=== PATIENT | female | born 2000 | race Caucasian/White ===

== ENCOUNTER 2023-10-18 06:03 | Day surgery (SDC) | payer BC, SELFPAY ==
[2023-09-28 08:43] LABS: Hematocrit 36.4 % (37.0-47.0); Hemoglobin 13.2 g/dL (12.0-16.0); Mean Corp Hgb Conc. 36.3 g/dL (33.0-37.0); Mean Corpuscular Hgb 32.7 pg (27.0-31.0); Mean Corpuscular Volume 90.1 fL (81.0-99.0); Mean Platelet Volume 10.6 fL (7.4-10.4); Platelet Count 229 10^3/uL (130-400); Red Blood Cell Count 4.04 10^6/uL (4.20-5.40); Red Cell Dist. Width 11.8 % (11.5-14.5); White Blood Cell Count 6.9 10^3/uL (4.8-10.8)
[2023-09-28 08:49] LABS: HCG, Urine Qualitative Screen Negative
[2023-09-28 10:19] VITALS: BMI 21.3
[2023-10-18] VITALS (9 sets, daily range): BP systolic 102–115; BP diastolic 61–97; BMI 21.3
[2023-10-18] MEDS: NORMOSOL-R 1000 IV (08:16)
[2023-10-18] MEDS: TYLENOL 1000 MG PO (08:16)
== END 2023-10-18 11:56 | disposition home or self-care (01) ==
LOC: SDS 06:03
PROVIDERS: ATTENDING PHYSICIAN Otolaryngology; FAMILY PHYSICIAN Physician Assistant Medical
DX: J03.91 Acute recurrent tonsillitis, unspecified (principal)
CPT/HCPCS: 42826; 88304; 36415; 81025; 85027

== ENCOUNTER 2024-05-30 16:48 | Emergency (ER) | payer BC, SELFPAY ==
[2024-05-30 16:50] VITALS: BP 119/63
[2024-05-30 17:00] LABS: % Basophils 0.7 % (0-2); % Eosinophils 1.8 % (0-6); % Immature Granulocytes 0.2 % (0-0.5); % Lymphocytes 42.8 % (20.5-51.1); % Monocytes 8.7 % (1.7-9.3); % Neutrophils 45.8 % (42.2-75.2); Absolute Eosinophils 0.1 10^3/uL (0-0.7); Absolute Lymphocytes 2.6 10^3/uL (1.2-3.4); Absolute Monocytes 0.5 10^3/uL (0.1-0.6); Absolute Neutrophils 2.8 10^3/uL (1.4-6.5); Hematocrit 35.8 % (37.0-47.0); Hemoglobin 12.8 g/dL (12.0-16.0); Mean Corp Hgb Conc. 35.8 g/dL (33.0-37.0); Mean Corpuscular Hgb 32.5 pg (27.0-31.0); Mean Corpuscular Volume 90.9 fL (81.0-99.0); Mean Platelet Volume 10.9 fL (7.4-10.4); Nucleated Red Blood Cells % 0 %; Platelet Count 170 10^3/uL (130-400); Red Blood Cell Count 3.94 10^6/uL (4.20-5.40); Red Cell Dist. Width 11.3 % (11.5-14.5)
[2024-05-30 17:21] LABS: HCG, Serum Qualitative Screen Negative
[2024-05-30 17:25] LABS: ALT (SGPT) 30 U/L (0-35); AST (SGOT) 23 U/L (14-36); Albumin 4.9 g/dl (3.5-5.0); Alkaline Phosphatase 56 U/L (38-126); Blood Urea Nitrogen 7 mg/dl (7-17); Calcium 9.6 mg/dl (8.4-10.2); Carbon Dioxide 27 mmol/L (22-30); Chloride 104 mmol/L (98-107); Glucose 87 mg/dl (70-99); Potassium 3.8 mmol/L (3.5-5.1); Sodium 140 mmol/L (135-145); Total Bilirubin 0.6 mg/dl (0.2-1.3); Total Protein 7.2 g/dl (6.3-8.2); eGFR > 60.00
--- NOTE | 2024-05-30 18:58 | ED.GENMED ---
History of Present Illness
General
Chief Complaint: Abdominal Pain
Source: patient
Exam Limitations: none
Time Seen by Provider: 05/30/24 18:28
History of Present Illness
History of Present Illness:
24yoF with a history of asthma and gluten intolerance presenting with her mother for evaluation of abdominal pain. Patient reports pain in her right lower quadrant for the past week. Pain was initially mild but became worse today. Pain is worse
with movement and she was having pain while driving due to the seatbelt pressing on the area. She has tried probiotics without any relief. Last bowel movement was 3 days ago but this is not unusual for her. She is nauseous but denies any
vomiting. She is worried about an ovarian cyst as she has a family history of this. She is otherwise asymptomatic and denies any fevers, diarrhea, dysuria, vaginal bleeding, vaginal discharge. Last menstrual period about 3 weeks ago. No previous
abdominal surgeries.
Past History
Past History
ED Past Medical History: Asthma, Psychiatric (Anxiety) and Other (Chronic constipation, UTI, )
ED Past Surgical History: None
Social History
Tobacco: Non-smoker
Alcohol: Occasional
Personal: (in the process of getting )
Living: with family
Employment: Employed
Family History
Family History: Other
Phy Exam
General Physical Exam
General Presentation: well appearing and no apparent distress
General age: appears stated age
General Skin: warm and dry
General Habitus: normal
ENT Exam
ENT Exam: normocephalic
Cardiovascular Exam
Cardiovascular Exam: regular rate/rhythm
Pulmonary Exam
Pulmonary Exam: lungs clear, no respiratory distress, no rales, no crackles, no rhonchi and no wheezing
Gastrointestinal Exam
Gastrointestinal Exam: soft, non distended, tender and other (+Tenderness in the RLQ, RUQ, epigastric, and suprapubic regions. Abdomen soft, non-distended. No rebound or guarding.)
Neurological Exam
Neurological Exam: alert
Shaan Coma Scale
Eye Opening: Spontaneous
Verbal Response: Oriented
Motor Response: Obeys Commands
GCS Total Score: 15
Skin Exam
Skin Exam: normal color and warm/dry
Psychiatric Exam
Psychiatric Exam: normal mood/affect
Course
Orders/Labs/Results
Orders:
Orders
05/30/24 16:51
Test Result ONCE
05/30/24 16:55
Complete Blood Count/With Diff Urgent
Comprehensive Metabolic Panel Urgent
HCG, Serum Qualitative Screen Urgent
05/30/24 18:54
CT Abd/pel W Iv And Oral Contr Urgent
Comment:
Reason For Exam: RLQ pain
0.9% Sodium Chloride 1000 ml [Nss] 1,000 ml IV BOLUS
Iohexol [Omnipaque] See Protocol PO NOW STA
Ketorolac [Toradol] 15 mg IV NOW STA
05/30/24 21:47
US Pelvis Only (non-obstetric) Urgent
Reason For Exam: RLQ pain, possible cyst on CT
05/30/24 21:57
Urinalysis Reflex To Culture Urgent
Date Specimen was Collected: 05/30/24
Time Specimen was Collected: 21:55
Abnormal Lab Results
05/30/24
16:55
RBC 3.94 L 10^6/uL
(4.20-5.40)
Hct 35.8 L %
(37.0-47.0)
MCH 32.5 H pg
(27.0-31.0)
RDW 11.3 L %
(11.5-14.5)
MPV 10.9 H fL
(7.4-10.4)
05/30/24 16:55
05/30/24 16:55
Vital Signs
Initial and Last Documented VS:
Initial Vital Signs
Temp Pulse Resp BP Pulse Ox
98.5 F 67 16 119/63 100
05/30/24 16:50 05/30/24 16:50 05/30/24 16:50 05/30/24 16:50 05/30/24 16:50
Last Documented Vital Signs
Temp Pulse Resp BP Pulse Ox
98.2 F 78 17 108/72 99
05/30/24 23:28 05/30/24 23:28 05/30/24 23:28 05/30/24 20:00 05/30/24 23:28
MDM/Problems Addressed
Differential Diagnosis Includes:
24yoF here with RLQ pain x 1 week that worsened today. Worse with movement. Also having constipation but this is typical for her. VSS. She is well appearing in no distress. No signs of peritonitis on abdominal exam. Differential diagnosis includes
but is not limited to: appendicitis, mesenteric adenitis, colitis, ovarian cyst, nonspecific abdominal pain
Initial ED plan: Labs obtained in triage are unremarkable including normal white count. Will check UA and CT abdomen with IV/PO contrast. IV Toradol and fluid bolus.
*Critical Care Note
Total Time (30-74mins, 75-104mins- exclusive of procedures): Not Applicable
Update Note
Update Note:
UA bland without signs of infection. No evidence of appendicitis on CT. There is 'Small volume free fluid extending from the right adnexa into the dependent true pelvis which may be the sequela of recently ruptured right adnexal/ovarian cyst.' A
follow-up ultrasound was ordered which shows similar findings. Bilateral ovarian flow confirmed. She is comfortable on reassessment. Supportive care discussed including heating pad and NSAIDs. Advised f/u with OBGYN and ED return precautions
reviewed. She expressed understanding and was discharged in stable condition.
ED Attending Note
-
Portions of this chart may have been created with voice recognition software.� Occasional wrong word or��sound alike� substitutions may have occurred due to the inherent limitations of voice recognition software.
Discharge Plan
Departure
Patient Disposition: Home (Routine Discharge)
Date of Disposition: 05/30/24
Time of Disposition: 23:13
Patient with high blood pressure during this ER visit?: No
Discharge Problem:
Acute right lower quadrant pain, Rupture of cyst of right ovary
Instructions: Ovarian Cyst (DC)
Prescriptions:
No Action
cyclobenzaprine 10 MG tablet
10 mg PO TIDPRN PRN (Reason: muscle tightness/spasm) Qty: 15 0RF
lorazepam [Ativan] 0.5 mg tablet
0.5 mg PO BID PRN (Reason: anxiety) Qty: 7 0RF
multivitamin Tablet
1 tab PO DAILY
ascorbic acid (vitamin C) [Vitamin C] 500 mg Tablet
500 mg PO DAILY
norethindrone-e.estradiol-iron [Junel Fe 24] 1 mg-20 mcg (24)/75 mg (4) Tablet
1 tab PO HS
Referrals:
Vidhya Gutiérrez MD [Active] -
Lisseth Soler PA-C [Family Provider] -
Activity Restrictions/Additional Instructions:
Apply heat to affected area. Take ibuprofen 400 to 600 mg every 6 hours as needed for pain.
Please follow-up with gynecology. Return to the ER with any worsening symptoms including severe pain or fevers.
Interventions
Interventions:
*Risk Screen - Suicide Last Done: 05/30/24 16:52
*General Assessment Last Done: 05/30/24 19:05
*Neglect/Abuse Screening Last Done: 05/30/24 16:52
*ED- Fall Risk Assessment Last Done: 05/30/24 19:05
*ED COVID-19 Vaccine History Last Done: 05/30/24 19:05
*Nursing Disposition Last Done: 05/30/24 23:28
PZ-Ekxhse-Xkygrtkftx Assessment Last Done: 05/30/24 19:05
Discharge Date and Time
Discharge Date/Time: 05/30/24 23:30
Print Language: POLISH
[2024-05-30 19:02] VITALS: BMI 22.6
[2024-05-30] MEDS: NSS 1000 IV (19:04)
[2024-05-30] MEDS: TORADOL 15 MG IV (19:04)
[2024-05-30] MEDS: OMNIPAQUE 50 ML PO (19:04)
[2024-05-30 19:09] VITALS: BP 100/68
[2024-05-30 20:00] VITALS: BP 108/72
[2024-05-30 22:08] LABS: Urine Albumin Negative (Neg - Trace); Urine Bilirubin Negative (Negative); Urine Character Clear (Clear); Urine Glucose Negative (Negative); Urine Ketone Negative (Negative); Urine Leukocyte Negative (Negative); Urine Nitrite Negative (Negative); Urine Occult Blood Negative (Negative); Urine Urobilinogen Negative (Neg - 1+)
[2024-05-30 22:09] LABS: Urine Color Straw
== END 2024-05-30 23:30 | disposition home or self-care (01) ==
LOC: EMR 16:48
PROVIDERS: Physician Assistant; Student in an Organized Health Care Education/Training Program; EMERGENCY PHYSICIAN Emergency Medicine; FAMILY PHYSICIAN Physician Assistant Medical
DX: N83.201 Unspecified ovarian cyst, right side (principal); R10.31 Right lower quadrant pain; J45.909 Unspecified asthma, uncomplicated; K90.41 Non-celiac gluten sensitivity
CPT/HCPCS: 99284; 96374; 96361; 74177; 76856; 80053; 81003; 84703; 85025; 96375; Q9967

== ENCOUNTER 2024-08-05 11:31 | Day surgery (SDC) | payer BC, SELFPAY ==
[2024-08-04 22:33] VITALS: BMI 23.4
[2024-08-04 22:34] VITALS: BP 114/62
[2024-08-04 22:50] LABS: % Basophils 0.4 % (0-2); % Eosinophils 0.7 % (0-6); % Immature Granulocytes 0.3 % (0-0.5); % Lymphocytes 20.3 % (20.5-51.1); % Monocytes 4.8 % (1.7-9.3); % Neutrophils 73.5 % (42.2-75.2); Absolute Basophils 0.1 10^3/uL (0-0.2); Absolute Eosinophils 0.1 10^3/uL (0-0.7); Absolute Lymphocytes 2.3 10^3/uL (1.2-3.4); Absolute Monocytes 0.6 10^3/uL (0.1-0.6); Absolute Neutrophils 8.5 10^3/uL (1.4-6.5); Hematocrit 31.3 % (37.0-47.0); Hemoglobin 11.6 g/dL (12.0-16.0); Mean Corp Hgb Conc. 37.1 g/dL (33.0-37.0); Mean Corpuscular Hgb 33.9 pg (27.0-31.0); Mean Corpuscular Volume 91.5 fL (81.0-99.0); Mean Platelet Volume 10.9 fL (7.4-10.4); Nucleated Red Blood Cells % 0 %; Platelet Count 187 10^3/uL (130-400); Red Blood Cell Count 3.42 10^6/uL (4.20-5.40); Red Cell Dist. Width 11.7 % (11.5-14.5); White Blood Cell Count 11.6 10^3/uL (4.8-10.8)
[2024-08-04 22:57] LABS: HCG, Serum Qualitative Screen Positive
[2024-08-04 23:11] LABS: ALT (SGPT) 10 U/L (0-35); AST (SGOT) 15 U/L (14-36); Albumin 4.3 g/dl (3.5-5.0); Alkaline Phosphatase 45 U/L (38-126); Blood Urea Nitrogen 10 mg/dl (7-17); Calcium 9.4 mg/dl (8.4-10.2); Carbon Dioxide 21 mmol/L (22-30); Chloride 108 mmol/L (98-107); Glucose 91 mg/dl (70-99); Lipase 56 U/L (23-300); Potassium 3.6 mmol/L (3.5-5.1); Sodium 137 mmol/L (135-145); Total Bilirubin 0.7 mg/dl (0.2-1.3); Total Protein 6.8 g/dl (6.3-8.2); eGFR > 60.00
[2024-08-04 23:50] VITALS: BP 96/66
[2024-08-04 23:53] VITALS: BP 96/66
[2024-08-05] VITALS (12 sets, daily range): BP systolic 96–111; BP diastolic 45–74
--- NOTE | 2024-08-05 00:24 | ED.GENMED ---
History of Present Illness
<Elian Hall PA-C - Last Filed: 08/06/24 06:13>
General
Chief Complaint: Abdominal Pain
Time Seen by Provider: 08/04/24 23:28
History of Present Illness
History of Present Illness:
24-year-old female presents to the emergency department for evaluation of lower abdominal pain radiating to her back and rectal area for the past day. Pain is intermittent in nature and associated with vaginal spotting. She does note that the
vaginal spotting has been ongoing for approximately 1 week. No fevers, chills, or sweats. Denies any dysuria or urgency. Uncertain if she may have had hematuria or whether this was vaginal bleeding. Last menstrual cycle was 3 to 4 weeks ago.
She is on oral contraceptives. Denies concern for STD
Past History
<Elian Hall PA-C - Last Filed: 08/06/24 06:13>
Past History
ED Past Medical History: Asthma, Psychiatric (Anxiety) and Other (Chronic constipation, UTI, )
ED Past Surgical History: None
Social History
Tobacco: Non-smoker
Alcohol: Occasional
Personal: (in the process of getting )
Living: with family
Employment: Employed
Family History
Family History: Other
Review of Systems
<Elian Hall PA-C - Last Filed: 08/06/24 06:13>
Review of Systems
Allergies reviewed?: Yes
All Other Systems: ROS reviewed and negative except as documented in HPI and ROS
Phy Exam
<Elian Hall PA-C - Last Filed: 08/06/24 06:13>
Physical Exam
Physical Exam:
GEN: Well appearing, NAD, WDWN
HEENT: Oral mucosa moist, no scleral icterus
Cardiac: Regular rate
Lung: No respiratory distress, no tachypnea
Abd: Soft, mildly tender suprapubic region, no rigidity
MSK: No gross deformity or injuries
Skin: Good color, no pallor or jaundice, no rashes
Neuro: AO x3, moves all extremities freely
Psych: Calm, cooperative
Course
<Elian Hall PA-C - Last Filed: 08/06/24 06:13>
Orders/Labs/Results
Orders:
Orders
08/04/24 22:38
Test Result ONCE
08/04/24 22:40
Beta HCG Quantitative Urgent
Comment: ADD ON
Complete Blood Count/With Diff Urgent
Comprehensive Metabolic Panel Urgent
HCG, Serum Qualitative Screen Urgent
Comment: Notify provider if positive test present
Lipase Urgent
08/04/24 23:43
Add On- LAB Urgent
Tests Added?: Beta hcg quantitative
08/05/24 00:23
0.9% Sodium Chloride 1000 ml [Nss] 1,000 ml IV BOLUS
US W Transvaginal Urgent
Comment:
Reason For Exam: + preg, pelvic pain
08/05/24 02:27
Acetaminophen [Tylenol] 1,000 mg PO NOW STA
08/05/24 02:50
Urinalysis Reflex To Culture Urgent
Date Specimen was Collected: 08/05/24
Time Specimen was Collected: 02:45
Urine Microscopic Reflex Cult Urgent
Urine Culture Urgent
ANYA Source: U
Specimen Description:
Date Specimen was Collected: 08/05/24
Time Specimen was Collected: 02:45
08/05/24 03:19
MRI Abdomen [MR Abdomen Without Contrast] Urgent
Comment:
Reason For Exam: RLQ pain, possible appendicitis, 1st trim
OK for patient to be off Cardiac Monitoring for MRI: Yes
Recent pill cam endoscopy?: No
Pacemaker/Defibrillator?: No
Brain Aneurysm Clips?: No
Have you ever worked with metal? grinding metal? welding?: No
Cochlear(ear) implants?: No
Does Pt have a Temp Sensing Cath?: No
Does the patient have IV access?: Yes
Does the patient have any stents?: No
08/05/24 09:17
Type+Screen Urgent
PTT Urgent
08/05/24 09:35
Fentanyl Citrate/Pf [Sublimaze] 25 mcg IV [id number] PRN
HYDROmorphone [Dilaudid] 0.25 mg IV PACU-Q5MPRN PRN
HYDROmorphone [Dilaudid] 0.5 mg IV PACU-Q5MPRN PRN
Ondansetron Injectable [Zofran] 4 mg IV PACU-ONCEPRN PRN
Prochlorperazine [Compazine] 5 mg IV PACU-ONCEPRN PRN
Notify MD As Directed
Notify physician if: for SDS patients with known or suspected sleep obstructive sleep apnea, monitor in the
PACU.
Notify MD for any apneic/desaturation episodes
O2 Therapy [RESP] Urgent
Titrate/Wean O2 to maintain O2 sat greater than (%): 92
Special Instructions: -Provide supplemental oxygen to achieve O2 sat of 92% or greater.
-After 15 min, may wean O2 and discontinue if patient is able to maintain O2 sat of 92%
or greater during recovery period.
If patient is a discharge home, without oxygen therapy, notify anestheiologist if
unable to maintain O2 SAT of 92% or greater on room air for MD clearance.
08/05/24 09:43
ABO2 Routine
Platypus Platform[employer] Wristband Number:
Associate notified that ABO2 has been ordered: Y
Date: 08/05/24
Time: 09:31
Endodontics Dentist ID: [id number]
08/05/24 09:45
Normosol (Mult Electrolytes) [Normosol-R/Plasmalyte-A] 1,000 ml IV PER PROTOCOL
08/05/24 09:56
Bupivacaine Mpf 0.25% [Sensorcaine-Mpf 0.25% Vial] 30 ml .ROUTE .STK-MED ONE
08/05/24 10:00
Fentanyl Citrate/Pf [Sublimaze] 100 mcg .ROUTE .STK-MED ONE
08/05/24 10:01
Dexamethasone Sod Phosphate [Decadron] 20 mg .ROUTE .STK-MED ONE
Midazolam HCl [Versed] 2 mg .ROUTE .STK-MED ONE
Ondansetron Injectable [Zofran] 4 mg .ROUTE .STK-MED ONE
08/05/24 10:02
Lidocaine HCl/Pf [Xylocaine-Mpf 1% Vial] 50 mg .ROUTE .STK-MED ONE
Propofol [Diprivan] 40 ml .ROUTE .STK-MED
Rocuronium [place] [Rocuronium] 100 mg .ROUTE .STK-MED ONE
Sugammadex Sodium [Bridion] 200 mg .ROUTE .STK-MED ONE
08/05/24 10:29
Metoclopramide [Reglan] 10 mg .ROUTE .STK-MED ONE
08/05/24 10:35
OR Pathology Routine
Pre-Operative Diagnosis: ECTOPIC
Post-Operative Diagnosis: RUPTURED RIGHT ECTOPIC
Operative Procedure: DX LAP;RIGHT SALPINGECTOMY
Surgeon: ADEBAYO
Circulating Nurse: SHAKA
Specimen Type: RIGHT FALLOPIAN TUBE
08/05/24 10:37
Phenylephrine HCl/0.9% NaCl [Jah-Synephrine] 1,000 mcg .ROUTE .STK-MED ONE
08/05/24 11:08
Ketorolac [Toradol] 30 mg .ROUTE .STK-MED ONE
08/05/24 11:47
HYDROmorphone [Dilaudid] 2 mg PO Q4HPRN PRN
08/05/24 12:00
Acetaminophen [Tylenol] 650 mg PO SDS-Q4HPRN PRN
Normosol (Mult Electrolytes) [Normosol-R/Plasmalyte-A] 1,000 ml IV SDS-ONCE
Ondansetron Injectable [Zofran] 4 mg IV SDS-ONCEPRN PRN
Oxycodone [Roxicodone] 5 mg PO SDS-Q4HPRN PRN
Abnormal Lab Results
08/04/24 08/05/24
22:40 02:50
WBC 11.6 H 10^3/uL
(4.8-10.8)
RBC 3.42 L 10^6/uL
(4.20-5.40)
Hgb 11.6 L g/dL
(12.0-16.0)
Hct 31.3 L %
(37.0-47.0)
MCH 33.9 H pg
(27.0-31.0)
MCHC 37.1 H g/dL
(33.0-37.0)
MPV 10.9 H fL
(7.4-10.4)
Absolute Neuts (auto) 8.5 H 10^3/uL
(1.4-6.5)
Lymphocytes % 20.3 L %
(20.5-51.1)
Chloride 108 H mmol/L
(98-107)
Carbon Dioxide 21 L mmol/L
(22-30)
Ur Occult Blood Reflex 4+ A
(Negative)
Leukocyte Esterase Rfl 1+ A
(Negative)
Urine Bacteria (Reflex) Many A
(Negative)
08/04/24 22:40
08/04/24 22:40
Vital Signs
Initial and Last Documented VS:
Initial Vital Signs
Temp Pulse Resp BP Pulse Ox
98.6 F 82 16 114/62 100
08/04/24 22:34 08/04/24 22:34 08/04/24 22:34 08/04/24 22:34 08/04/24 22:34
Last Documented Vital Signs
Temp Pulse Resp BP Pulse Ox
98.2 F 79 16 110/70 100
08/05/24 11:30 08/05/24 12:45 08/05/24 12:45 08/05/24 12:45 08/05/24 12:45
<Florentin Odell MD - Last Filed: 08/05/24 09:30>
Orders/Labs/Results
Orders:
Orders
08/04/24 22:38
Test Result ONCE
08/04/24 22:40
Beta HCG Quantitative Urgent
Comment: ADD ON
Complete Blood Count/With Diff Urgent
Comprehensive Metabolic Panel Urgent
HCG, Serum Qualitative Screen Urgent
Comment: Notify provider if positive test present
Lipase Urgent
08/04/24 23:43
Add On- LAB Urgent
Tests Added?: Beta hcg quantitative
08/05/24 00:23
0.9% Sodium Chloride 1000 ml [Nss] 1,000 ml IV BOLUS
US W Transvaginal Urgent
Comment:
Reason For Exam: + preg, pelvic pain
08/05/24 02:27
Acetaminophen [Tylenol] 1,000 mg PO NOW STA
08/05/24 02:50
Urinalysis Reflex To Culture Urgent
Date Specimen was Collected: 08/05/24
Time Specimen was Collected: 02:45
Urine Microscopic Reflex Cult Urgent
Urine Culture Urgent
ANYA Source: U
Specimen Description:
Date Specimen was Collected: 08/05/24
Time Specimen was Collected: 02:45
08/05/24 03:19
MRI Abdomen [MR Abdomen Without Contrast] Urgent
Comment:
Reason For Exam: RLQ pain, possible appendicitis, 1st trim
OK for patient to be off Cardiac Monitoring for MRI: Yes
Recent pill cam endoscopy?: No
Pacemaker/Defibrillator?: No
Brain Aneurysm Clips?: No
Have you ever worked with metal? grinding metal? welding?: No
Cochlear(ear) implants?: No
Does Pt have a Temp Sensing Cath?: No
Does the patient have IV access?: Yes
Does the patient have any stents?: No
08/05/24 09:17
Type+Screen Urgent
PTT Urgent
08/05/24 09:35
Fentanyl Citrate/Pf [Sublimaze] 25 mcg IV [id number] PRN
HYDROmorphone [Dilaudid] 0.25 mg IV PACU-Q5MPRN PRN
HYDROmorphone [Dilaudid] 0.5 mg IV PACU-Q5MPRN PRN
Ondansetron Injectable [Zofran] 4 mg IV PACU-ONCEPRN PRN
Prochlorperazine [Compazine] 5 mg IV PACU-ONCEPRN PRN
Notify MD As Directed
Notify physician if: for SDS patients with known or suspected sleep obstructive sleep apnea, monitor in the
PACU.
Notify MD for any apneic/desaturation episodes
O2 Therapy [RESP] Urgent
Titrate/Wean O2 to maintain O2 sat greater than (%): 92
Special Instructions: -Provide supplemental oxygen to achieve O2 sat of 92% or greater.
-After 15 min, may wean O2 and discontinue if patient is able to maintain O2 sat of 92%
or greater during recovery period.
If patient is a discharge home, without oxygen therapy, notify anestheiologist if
unable to maintain O2 SAT of 92% or greater on room air for MD clearance.
08/05/24 09:43
ABO2 Routine
BBK Wristband Number:
Associate notified that ABO2 has been ordered: Y
Date: 08/05/24
Time: 09:31
Endodontics Dentist ID: [id number]
08/05/24 09:45
Normosol (Mult Electrolytes) [Normosol-R/Plasmalyte-A] 1,000 ml IV PER PROTOCOL
08/05/24 09:56
Bupivacaine Mpf 0.25% [Sensorcaine-Mpf 0.25% Vial] 30 ml .ROUTE .STK-MED ONE
08/05/24 10:00
Fentanyl Citrate/Pf [Sublimaze] 100 mcg .ROUTE .STK-MED ONE
08/05/24 10:01
Dexamethasone Sod Phosphate [Decadron] 20 mg .ROUTE .STK-MED ONE
Midazolam HCl [Versed] 2 mg .ROUTE .STK-MED ONE
Ondansetron Injectable [Zofran] 4 mg .ROUTE .STK-MED ONE
08/05/24 10:02
Lidocaine HCl/Pf [Xylocaine-Mpf 1% Vial] 50 mg .ROUTE .STK-MED ONE
Propofol [Diprivan] 40 ml .ROUTE .STK-MED
Rocuronium [place] [Rocuronium] 100 mg .ROUTE .STK-MED ONE
Sugammadex Sodium [Bridion] 200 mg .ROUTE .STK-MED ONE
08/05/24 10:29
Metoclopramide [Reglan] 10 mg .ROUTE .STK-MED ONE
08/05/24 10:35
OR Pathology Routine
Pre-Operative Diagnosis: ECTOPIC
Post-Operative Diagnosis: RUPTURED RIGHT ECTOPIC
Operative Procedure: DX LAP;RIGHT SALPINGECTOMY
Surgeon: ADEBAYO
Circulating Nurse: SHAKA
Specimen Type: RIGHT FALLOPIAN TUBE
08/05/24 10:37
Phenylephrine HCl/0.9% NaCl [Jah-Synephrine] 1,000 mcg .ROUTE .STK-MED ONE
08/05/24 11:08
Ketorolac [Toradol] 30 mg .ROUTE .STK-MED ONE
08/05/24 11:47
HYDROmorphone [Dilaudid] 2 mg PO Q4HPRN PRN
08/05/24 12:00
Acetaminophen [Tylenol] 650 mg PO SDS-Q4HPRN PRN
Normosol (Mult Electrolytes) [Normosol-R/Plasmalyte-A] 1,000 ml IV SDS-ONCE
Ondansetron Injectable [Zofran] 4 mg IV SDS-ONCEPRN PRN
Oxycodone [Roxicodone] 5 mg PO SDS-Q4HPRN PRN
Abnormal Lab Results
08/04/24 08/05/24
22:40 02:50
WBC 11.6 H 10^3/uL
(4.8-10.8)
RBC 3.42 L 10^6/uL
(4.20-5.40)
Hgb 11.6 L g/dL
(12.0-16.0)
Hct 31.3 L %
(37.0-47.0)
MCH 33.9 H pg
(27.0-31.0)
MCHC 37.1 H g/dL
(33.0-37.0)
MPV 10.9 H fL
(7.4-10.4)
Absolute Neuts (auto) 8.5 H 10^3/uL
(1.4-6.5)
Lymphocytes % 20.3 L %
(20.5-51.1)
Chloride 108 H mmol/L
(98-107)
Carbon Dioxide 21 L mmol/L
(22-30)
Ur Occult Blood Reflex 4+ A
(Negative)
Leukocyte Esterase Rfl 1+ A
(Negative)
Urine Bacteria (Reflex) Many A
(Negative)
08/04/24 22:40
08/04/24 22:40
Vital Signs
Initial and Last Documented VS:
Initial Vital Signs
Temp Pulse Resp BP Pulse Ox
98.6 F 82 16 114/62 100
08/04/24 22:34 08/04/24 22:34 08/04/24 22:34 08/04/24 22:34 08/04/24 22:34
Last Documented Vital Signs
Temp Pulse Resp BP Pulse Ox
98.2 F 79 16 110/70 100
08/05/24 11:30 08/05/24 12:45 08/05/24 12:45 08/05/24 12:45 08/05/24 12:45
<Elian Hall PA-C - Last Filed: 08/06/24 06:13>
*Pulse Oximetry
Patient hypoxic: no
Comment: 100% RA
*Critical Care Note
Total Time (30-74mins, 75-104mins- exclusive of procedures): 85 min
comment:
Critical care time: 85 min
Critical care time was exclusive of: Separately billable procedures, treating other patients, and teaching time
Critical care was necessary to treat or prevent imminent or life-threatening deterioration of the following conditions: ruptured ectopic
Critical care time spent personally by me on the following activities:
[x] Review of old charts
[x] Obtaining history from patient or surrogate
[x] Ordering and review of the laboratory studies
[x] Ordering and review of radiographic studies
[x] Ordering and performing treatments and interventions
[x] Patient patient's response to treatment
[x] Development of treatment plan with patient or surrogate
<Elian Hall PA-C - Last Filed: 08/06/24 06:13>
Update Note
Update Note:
Case discussed with radiology, at this time ultrasound does not show any endometrial thickening or evidence for adnexal mass suggestive of ectopic. However there is mild to moderate degree of free fluid in the pelvis some of which does appear to be
complex without clear discernible cause. Hydroelectric Station Operator did obtain right lower quadrant images and noted tenderness over the appendix although the appendix measures within normal limits at this time. Radiology recommends further imaging if clinical
presentation is congruent. I discussed the case with the patient and reexamined her, at this time she has prominent right lower quadrant tenderness. Still awaiting urinalysis. Ultimately given that she is and has severe RLQ tenderness on
repeat examination, we will pursue obtaining an abdominal MRI for further assessment of possible appendicitis because at this time her pain is not clearly explained by early term . Suspect her vaginal spotting is most likely implantation
bleeding. Will sign out to Dr. Lr, MRI will be ordered however will need to discuss with oncoming radiology team in the morning to discuss urgent MRI
<Florentin Odell MD - Last Filed: 08/05/24 09:30>
Update Note
Update Note:
Case discussed with radiology, at this time ultrasound does not show any endometrial thickening or evidence for adnexal mass suggestive of ectopic. However there is mild to moderate degree of free fluid in the pelvis some of which does appear to be
complex without clear discernible cause. Hydroelectric Station Operator did obtain right lower quadrant images and noted tenderness over the appendix although the appendix measures within normal limits at this time. Radiology recommends further imaging if clinical
presentation is congruent. I discussed the case with the patient and reexamined her, at this time she has prominent right lower quadrant tenderness. Still awaiting urinalysis. Ultimately given that she is and has severe RLQ tenderness on
repeat examination, we will pursue obtaining an abdominal MRI for further assessment of possible appendicitis because at this time her pain is not clearly explained by early term . Suspect her vaginal spotting is most likely implantation
bleeding. Will sign out to Dr. Lr, MRI will be ordered however will need to discuss with oncoming radiology team in the morning to discuss urgent MRI
MRI abdomen findings concerning for ruptured ectopic . Patient evaluated in ED by Dr. Chen, HEALTH SERVICE WORKER. Will proceed to OR
ED Attending Note
<Elian Hall PA-C - Last Filed: 08/06/24 06:13>
-
Portions of this chart may have been created with voice recognition software.� Occasional wrong word or��sound alike� substitutions may have occurred due to the inherent limitations of voice recognition software.
Discharge Plan
Departure
Patient Disposition: OR
Date of Disposition: 08/05/24
Time of Disposition: 09:29
Admit to: OR
Presentation/result/management discussed w/ accepting MD/DO:
Discharge Problem:
Ruptured ectopic
Interventions
Interventions:
*Risk Screen - Suicide Last Done: 08/04/24 22:34
*General Assessment Last Done: 08/04/24 22:34
*Neglect/Abuse Screening Last Done: 08/04/24 22:34
*ED- Fall Risk Assessment Last Done: 08/04/24 23:56
*ED COVID-19 Vaccine History Last Done: 08/05/24 02:37
*Nursing Disposition Last Done: 08/05/24 09:51
KZ-Kqywia-Ocnquqlhxx Assessment Last Done: 08/04/24 23:55
Discharge Date and Time
Discharge Date/Time: 08/05/24 09:55
[2024-08-05] MEDS: NSS 1000 IV (00:34)
[2024-08-05] MEDS: TYLENOL 1000 MG PO (02:32)
[2024-08-05 03:11] LABS: Urine Albumin Negative (Neg - Trace); Urine Bilirubin Negative (Negative); Urine Character Slightly Cloudy (Clear); Urine Color Yellow; Urine Glucose Negative (Negative); Urine Ketone Negative (Negative); Urine Leukocyte 1+ (Negative); Urine Nitrite Negative (Negative); Urine Occult Blood 4+ (Negative); Urine Specific Gravity 1.015 (<1.030); Urine Urobilinogen Negative (Neg - 1+)
[2024-08-05 03:17] LABS: Urine Squamous Cell >30 /LPF (Few)
[2024-08-05 03:18] LABS: Urine Bacteria Many (Negative); Urine Red Blood Cell 0-2 /HPF (0-2); Urine White Cell 0-2 /HPF (0-5)
[2024-08-05 09:40] LABS: APTT 23.7 Sec (23.4-35.0)
== END 2024-08-05 13:12 | disposition home or self-care (01) ==
LOC: PACU 11:31
PROVIDERS: Physician Assistant; Student in an Organized Health Care Education/Training Program; ATTENDING PHYSICIAN Obstetrics & Gynecology; EMERGENCY PHYSICIAN Student in an Organized Health Care Education/Training Program
DX: O00.101 Right tubal pregnancy without intrauterine pregnancy (principal); K66.1 Hemoperitoneum
CPT/HCPCS: 59151; 49322; 88305; 74181; 76801; 76817; 80053; 81003; 81015; 83690; 84702; 84703; 85025; 85730; 86850; 86900; 86901; 87086; 88341; 88342; 96360; 99291; C1776

== ENCOUNTER → 2024-08-07 07:38 | Outpatient (REF) | payer BC, SELFPAY ==
[2024-08-07 09:00] LABS: Beta HCG Quantitative 370.25 mIU/ml
== END ==
LOC: REG 07:38
PROVIDERS: ATTENDING PHYSICIAN Obstetrics & Gynecology; FAMILY PHYSICIAN Physician Assistant Medical
DX: O00.109 Unspecified tubal pregnancy without intrauterine pregnancy (principal)
CPT/HCPCS: 36415; 84702